=== PATIENT | male | born 1980 | race African-American/Black ===

== ENCOUNTER 2020-01-25 08:36 | Emergency (ER) | payer SELFPAY ==
[2020-01-25] MEDS ORDERED: Adacel (T-DAP) 0.5 ML SYRINGE ONE (08:55)
[2020-01-25] MEDS ORDERED: Lidocaine 1% PF 5 ML VIAL ONE (08:55)
[2020-01-25] MEDS ORDERED: Cephalexin 250 MG CAP ONE (08:55)
[2020-01-25] MEDS ORDERED: Bacitracin 1 PK ONE (09:14)
== END 2020-01-25 09:23 | disposition home or self-care (01) ==
LOC: BURERS 08:36
DX: S61.012A Laceration without foreign body of left thumb without damage to nail, initial encounter (principal); W45.8XXA Other foreign body or object entering through skin, initial encounter
CPT/HCPCS: 90471; 90715; J2001

== ENCOUNTER 2021-04-23 23:57 | Emergency (ER) | payer SELFPAY ==
[2021-04-24 01:31] LABS: ALT (SGPT) 13 U/L (8-55); AST (SGOT) 22 U/L (5-34); Albumin 3.7 g/dL (3.5-5.0); Alkaline Phosphatase 256 U/L (40-110); Anion Gap 17 mmol/L (10-20); BUN (Urea Nitrogen) 9 mg/dL (8.9-20.6); Bilirubin, Total 2.6 mg/dL (0.2-1.2); CK (CPK) 134 U/L (30-200); Calc. Creatinine Clearance 0 mL/min (70-130); Calcium 9.2 mg/dL (7.8-10.44); Chloride 101 mmol/L (98-107); Globulin 3.9 g/dL (2.4-3.5); Glucose 106 mg/dL (70-105); Potassium 3.8 mmol/L (3.5-5.1); Protein, Total 7.6 g/dL (6.0-8.3); Sodium 141 mmol/L (136-145)
[2021-04-24 01:36] LABS: Carbon Dioxide 27 mmol/L (22-29)
[2021-04-24 01:37] LABS: #Basophils 0.1 thou/uL (0.0-0.2); #Lymphocytes 2.2 thou/uL (1.20-3.40); #Monocytes 0.5 thou/uL (0.11-0.59); %Basophils 0.9 % (0.0-1.0); %Eosinophils 0.6 % (0.0-10.0); %Lymphocytes 27.7 % (21.0-51.0); %Monocytes 6.7 % (0.0-10.0); %Neutrophils 64.1 % (42.0-75.0); CKMB 1.4 ng/mL (0-6.6); Hemoglobin 11.6 g/dL (14.0-18.0); Mean Corpuscular HGB CONC 31.5 g/dL (32.0-36.0); Mean Corpuscular Hemoglobin 27.8 pg (27.0-31.0); Mean Corpuscular Volume 88.3 fL (78.0-98.0); Mean Platelet Volume 5.8 fL (7.4-10.4); Platelet Count 396 thou/uL (130-400); RBC Distribution Width 18.8 % (11.5-14.5); Red Blood Cell (RBC) Count 4.17 mill/uL (4.70-6.10); White Blood Cell (WBC) Count 7.8 thou/uL (4.8-10.8)
[2021-04-24] MEDS ORDERED: Aspirin 325 MG TAB ONE (01:53)
[2021-04-24] MEDS ORDERED: Furosemide 40 MG/4 ML VIAL ONE (01:53)
[2021-04-24 02:31] LABS: Anisocytosis MODERATE=16-30 cells (100X) (0-5/hpf); Crenated RBC SLIGHT = 1-5 cells (100X) (None Seen); Hypochromia SLIGHT = 6-15 cells (100X) (0-5/hpf); Microcytosis SLIGHT = 6-15 cells (100X) (0-5/hpf); Poikilocytosis SLIGHT = 6-15 cells (100X) (0-5/hpf)
[2021-04-24 02:32] LABS: Platelet Morphology Comment Appears Adequate
[2021-04-24 03:06] LABS: SARS-CoV-2 NAA Rapid Test Not Detected (NotDetected)
[2021-04-24 10:41] LABS: Troponin I 0.093 ng/mL (< 0.028)
[2021-04-24] MEDS ORDERED: Furosemide 100 MG/10 ML VIAL ONE (13:20)
== END 2021-04-24 14:30 | disposition home or self-care (01) ==
LOC: BURERS 23:57
DX: I11.0 Hypertensive heart disease with heart failure (principal); I50.9 Heart failure, unspecified; Z20.822 Contact with and (suspected) exposure to COVID-19; F17.210 Nicotine dependence, cigarettes, uncomplicated; Z79.899 Other long term (current) drug therapy
CPT/HCPCS: 36415; 71045; 80053; 82550; 82553; 83880; 84484; 85025; 93005; 96374; 96376; J1940; U0002